=== PATIENT | female | born 1995 | race Hispanic/Latino ===

== ENCOUNTER 2018-11-01 15:27 | Emergency (ER) | payer MEDICAID ==
[2018-11-01] MEDS ORDERED: ACETAMINOPHEN EXTRA STRENGTH 500 MG TABLET ONE (16:11)
== END 2018-11-01 16:51 | disposition home or self-care (01) ==
LOC: EDH 15:27
DX: S93.504A Unspecified sprain of right lesser toe(s), initial encounter (principal); W18.09XA Striking against other object with subsequent fall, initial encounter; Y93.89 Activity, other specified; Y92.098 Other place in other non-institutional residence as the place of occurrence of the external cause; Y99.8 Other external cause status
CPT/HCPCS: 73660